=== PATIENT | male | born 1985 | race Caucasian/White ===

== ENCOUNTER 2023-04-22 12:47 | Outpatient (AMB) | payer OTHER, SELFPAY ==
[2023-04-22 12:57] VITALS: BP 118/66; PULSE 68; RESP 13; TEMP 37.2; O2SAT 99; BMI 28.0
--- NOTE | 2023-04-22 12:57 | MHC.PC.OV ---
Vital Signs 04/22/23 12:57 Height 6 ft 3 in Weight 224 lb 4 oz BMI 28.0 BP 118/66 Blood Pressure Location Lt brachial Position Sitting Respiration 13 Pulse 68 Pulse Source Pulse Oximeter Temp 98.9 F Temp Source Temporal Artery Scan Pulse Oximetry (%) 99 Oxygen Delivery Method Room Air Intake Visit Reasons: New Patient, est. care Intake Note: Patient presents as a new patient today and establishing care. Patient would like to discuss vasectomy. Patient reports are no other concerns. Patient reports seeing a doctor last in [facility] in 2015 at [place]. Patient reports being concerned regarding his alcohol intake and his family history of alcoholism. Patient reports he has not had alcohol in 4 days and is trying not to return to drinking. Call Center Director Required: No Accompanied by: Self / Same As Patient Allergies No Known Allergies Allergy (Verified 04/22/23 13:04) Tobacco use date assessed: 04/22/23 Dental Screening Dental Screen Date: 04/22/23 Did you have a dental visit in the last 12 months?: No Did you have a dental problem in the last 6 months where you did not have access to dental care?: No Was dental information given to patient?: Yes HPI New Patient, est. care HPI Details New patient Prior PCP:? ?doctor last in [facility] in 2016 at [place] Last office visit/CPE: Acute issue(s): Alcohol use disorder. Last drink 4 days ago and trying not to return to this. Wants a vasectomy PMHx: Pneumonia 2011 SurgHx: R inguinal hernia 1991 FHx: Mom: Hypertension Dad: Alcoholism. SocHx: EtOH 3 per day, currently none. No other drugs. [facility] Medical History (Updated 04/22/23 @ 13:30 by Kimo Pruitt) Hernia Surgical History (Updated 04/22/23 @ 13:10 by Sury Purcell) History of hernia surgery Family History (Updated 04/22/23 @ 13:17 by Sury Purcell) Mother Hypertension Thyroid disease Thyroid cancer Father Alcoholism Social History (Updated 04/22/23 @ 13:09 by Sury Purcell) Household Members: Spouse and Children Housing: House Alcohol intake: current Alcohol intake frequency: former alcohol drinker Alcohol type: beer and hard liquor Patient Tobacco Use Status: Never used Tobacco e-Cigarette/Vaping Use: Never Used Substance Use Type: Marijuana service: No Current occupational status: employed 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 1. Little interest or pleasure in doing things: several days 2. Feeling down, depressed, or hopeless: several days 3. Trouble falling or staying asleep, or sleeping too much: not at all 4. Feeling tired or having little energy: not at all 5. Poor appetite or overeating: not at all 6. Feeling bad about yourself - or that you are a failure or have let yourself or your family down: not at all 7. Trouble concentrating on things, such as reading the newspaper or watching television: not at all 8. Moving or speaking so slowly that other people could have noticed. Or the opposite - being so fidgety or restless that you have been moving around a lot more than usual: not at all 9. Thoughts that you would be better off or of hurting yourself in some way: not at all Total score: 2 Source: Developed by Drs. Kevin Washington, Lorri Mcmillan, Evans Acosta and colleagues, with an educational nikolas from [employer]. Thrive Questionnaire Date Thrive assessed: 04/22/23 I am a: Patient What is your living situation today?: I have a steady place to live Within the past 12 months, did the food you bought not last and you didn't have the money to get more?: Never true Within the past 12 months, did you worry whether your food would run out before you got money to buy more?: Never true Do you have trouble paying for medicines?: No Do you have trouble getting transportation to medical appointments?: No Do you have trouble paying your heating and electricity bill?: No Do you have trouble taking care of your child, family member or friend?: No Do you have trouble with day-to-day activities such as bathing, preparing meals, shopping, managing finances, etc.?: No Are you currently unemployed and looking for a job?: No Are you interested in more education?: No Please select the resources that you would like help with: None Currently or been in a relationship where the following occur: no concerns reported AUDIT C Alcohol Use Questionnaire (AUDIT-C) 1. How often do you have a drink containing alcohol?: 2-4 times a month 2. How many drinks containing alcohol do you have on a typical day when you are drinking?: 1 or 2 3. How often do you have six or more drinks on one occasion?: Never Total Score: 2 KELSEY-7 AMB Questionnaire KELSEY-7 Date KELSEY - 7 assessed: 04/22/23 Feeling nervous, anxious, or on edge: 0 = Not at all Not being able to stop or control worryin = Not at all Worrying too much about different things: 1 = Several days Trouble relaxin = Several days Being so restless that it is hard to sit still: 0 = Not at all Becoming easily annoyed or irritable: 1 = Several days Feeling afraid as if something awful might happen: 0 = Not at all Total KELSEY-7 score (0-4 normal; 5-9 mild; 10-14 moderate; 15-21 severe): 3 Source: Developed by Drs. Kevin Washington, Lorri Mcmillan, Evans Acosta and colleagues, with an educational nikolas from [employer]. Review of Systems Const Denies chills, Denies fatigue, Denies fever(s), Denies headache(s) and Denies weakness ENT Denies dizziness and Denies headache(s) Card Denies chest pain, Denies lightheadedness, Denies dyspnea and Denies other (Palpitations) Resp Denies cough, Denies dyspnea, Denies wheezing and Denies other ( shortness of breath) Musc Denies numbness and Denies tingling Neuro Denies dizziness, Denies headache(s), Denies numbness, Denies tingling, Denies paresthesias and Denies weakness Psych Denies anxiety and Denies depression Endo Denies fatigue Aller/Immun Denies wheezing Physical exam (Primary Care) Vital Signs: Last Vital Signs Temp 98.9 F 04/22/23 12:57 Pulse 68 04/22/23 12:57 Resp 13 04/22/23 12:57 BP 118/66 04/22/23 12:57 Pulse Ox 99 04/22/23 12:57 Oxygen Delivery Method Room Air 04/22/23 12:57 BMI result Body Mass Index 28.0 Tobacco/Smoking Status: Tobacco use Status Tobacco use date assessed 04/22/23 04/22/23 13:06 Patient Tobacco Use Status Never used Tobacco 04/22/23 13:09 e-Cigarette/Vaping Use Never Used 04/22/23 13:09 PHQ-9: PHQ-9 Score PHQ-9: Total score 2 04/22/23 13:27 Thrive Assessment: Date of Thrive Assessment Date Thrive assessed 04/22/23 04/22/23 13:15 Currently or been in a relationship where the following occur: no concerns reported Const General: no acute distress and well developed Nutritional Appearance: well nourished Orientation/consciousness: patient oriented x3 HENMT Head: Yes normocephalic and Yes atraumatic Eyes General: appearance normal, both eyes and all related structures Pupils: Equal, round and reactive pupils present EOM: EOMs intact bilaterally Resp Effort & Inspection: normal respiratory effort Auscultation: clear to auscultation bilaterally Cardio Rate: regular rate Rhythm: regular rhythm Heart sounds: S1 normal heart sound present, S2 normal heart sound present, no gallops, no murmurs and no rubs Neuro General: patient oriented x3 and gait normal Cranial nerves: Yes Equal, round and reactive pupils present Psych Affect: normal affect Assessment and Plan Assessment & Plan (1) Alcohol use disorder: Code(s): F10.90 - Alcohol use, unspecified, uncomplicated Plan: Patient had been drinking about 3 drinks per day and discontinue this about 4 days ago. No adverse effects. He would like to remain abstinent and has a family history of alcoholism. Let him know that he can receive additional help if he requests it. Encouraged ongoing abstinence. (2) Family planning: Code(s): Z30.09 - Encounter for other general counseling and advice on contraception Plan: Patient would like a consult with Urology regarding a vasectomy (3) Laboratory exam ordered as part of routine general medical examination: Code(s): Z00.00 - Encounter for general adult medical examination without abnormal findings Plan: Check labs Orders: Orders Vitamin B12 and Folate Today E53.8 - Deficiency of other specified B group vitamins, F10.90 - Alcohol use, unspecified, uncomplicated Comprehensive [place]ott. Panel Fast Today Z00.00 - Encounter for general adult medical examination without abnormal findings Lipid Panel Today Z00.00 - Encounter for general adult medical examination without abnormal findings TSH reflex Free T4 Today Z00.00 - Encounter for general adult medical examination without abnormal findings Microalbumin, Random (w Creat) Today I10 - Essential (primary) hypertension, Z00.00 - Encounter for general adult medical examination without abnormal findings Complete Blood Count Auto Diff Today F10.90 - Alcohol use, unspecified, uncomplicated, Z. - Encounter for general adult medical examination without abnormal findings Hepatitis B,C Profile Today Z11.3 - Encounter for screening for infections with a predominantly sexual mode of transmission HIV Ab/Ag Today Z11.3 - Encounter for screening for infections with a predominantly sexual mode of transmission Syphilis Screen Today Z11.3 - Encounter for screening for infections with a predominantly sexual mode of transmission UA and rflx microscopic Today Z00.00 - Encounter for general adult medical examination without abnormal findings CT NG by PCR Today Z11.3 - Encounter for screening for infections with a predominantly sexual mode of transmission Referrals Urology Referral Z30. - Encounter for other general counseling and advice on contraception Coding Level of Care Code New Pt Level 3 (21207) Diagnoses Alcohol use disorder F10.90 Family planning Z30. Laboratory exam ordered as part of routine general medical examination Z.
== END 2023-04-22 13:40 | disposition home or self-care (01) ==
PROVIDERS: PCP Family Medicine; Visit Provider Family Medicine
DX: F10.90 Alcohol use, unspecified, uncomplicated (principal); Z30.09 Encounter for other general counseling and advice on contraception
CPT/HCPCS: 99203

== ENCOUNTER 2023-05-02 11:44 | Outpatient (REF) | payer OTHER, SELFPAY ==
[2023-05-02 14:08] LABS: MANUAL DIFF FLAG NO
[2023-05-02 14:15] LABS: Appearance Urine Clear; Color Urine Yellow; Glucose Urine UA Negative (Negative); Leukocyte Esterase Urine Negative (Negative); Nitrite Urine Negative (Negative); Specific Gravity - Urine <= 1.005 (1.005-1.025); Urine Blood Negative (Negative); Urine Ketones Negative (Negative); Urine Protein Negative (Neg-Trace)
[2023-05-02 14:30] LABS: Basophils Percent Auto 0.7 % (0-2); Eosinophils Absolute Auto 0.3 X10*3/uL (0.0-0.4); Eosinophils Percent Auto 6.4 % (0-4); Hematocrit 40.5 % (42.0-52.0); Hemoglobin 14.4 g/dl (14.0-18.0); Imm Gran Abs Auto 0.01 X10*3/uL (0.00-0.03); Imm Gran Pct Auto 0.2 % (0.0-0.4); Lymphocytes Absolute Auto 1.1 X10*3/uL (1.2-4.9); Lymphocytes Percent Auto 27.5 % (20-40); Mean Corpuscular HGB Conc 35.6 g/dl (31.0-36.0); Mean Corpuscular Hemoglobin 31.6 pg (27.0-33.0); Mean Platelet Volume 11.1 fL (9.4-12.4); Monocytes Absolute Auto 0.4 X10*3/uL (0.1-1.2); Monocytes Percent Auto 9.9 % (2-11); Neutrophils Absolute Auto 2.2 x10*3/uL (2.0-8.3); Neutrophils Percent Auto 55.3 % (45-73); Platelet Count 174 X10*3/uL (160-400); Red Blood Count 4.55 X10*6/uL (4.60-5.80); Red Cell Distribution Width 11.3 % (11.0-16.0)
[2023-05-02 15:04] LABS: Alanine Aminotransferase 18 U/L (0-40); Albumin Level 4.7 g/dL (3.5-5.0); Alkaline Phosphatase 59 U/L (39-117); Anion Gap 11 (12-20); Aspartate Amino Transferase 18 U/L (5-37); Blood Urea Nitrogen 8 mg/dL (9-16); Calcium 9.6 mg/dL (8.4-10.2); Carbon Dioxide 26 mmol/L (22-29); Chloride 108 mmol/L (96-108); Cholesterol 176 mg/dL (<200); Estimated Glomerular Filt Rate > 60; Glucose Fasting 91 mg/dL (60-99); HDL Cholesterol 37 mg/dL (>40); LDL Cholesterol Calculated 121 mg/dL (<100); Potassium 4.6 mmol/L (3.3-5.1); Sodium 140 mmol/L (135-145); Total Protein 7.4 g/dL (6.5-8.0); Triglycerides 93 mg/dL (<150)
[2023-05-02 15:05] LABS: TSH reflex Free T4 1.21 uIU/mL (0.32-4.0)
[2023-05-02 15:18] LABS: Folate 15.8 ng/mL (> or = 4.0); Vitamin B12 691 pg/mL (200-900)
[2023-05-02 15:23] LABS: Microalbumin Urine < 5.0 mg/L
[2023-05-03 03:54] LABS: Syphilis Screen Nonreactive (Nonreactive)
[2023-05-03 04:14] LABS: HBS Num1 135.43 mIU/mL (0-7.99); HBc Num1 0.13 S/CO (0.00-0.79); HIV AB/AG Nonreactive (Nonreactive); HIV Num 1 0.07 S/CO (0.00-0.99); Hepatitis B Core Antibody Nonreactive (Nonreactive); Hepatitis B Surface Antigen Negative (Negative); ~HepC Num1 0.11 S/CO (0.00-0.79); ~Hepatitis B Surface Antibody REACTIVE (Nonreactive); ~Hepatitis C Antibody Nonreactive (Nonreactive)
== END 2023-05-02 11:45 | disposition home or self-care (01) ==
LOC: HO.WFDLDS 11:44
PROVIDERS: Visit Provider Family Medicine
DX: Z00.00 Encounter for general adult medical examination without abnormal findings (principal); Z11.4 Encounter for screening for human immunodeficiency virus [HIV]; E53.8 Deficiency of other specified B group vitamins; I10 Essential (primary) hypertension; F10.90 Alcohol use, unspecified, uncomplicated; Z20.2 Contact with and (suspected) exposure to infections with a predominantly sexual mode of transmission
CPT/HCPCS: 36415; 80053; 80061; 81003; 82043; 82570; 82607; 82746; 84443; 85025; 86704; 86706; 86780; 86803; 87340; 87389